=== PATIENT | female | born 1955 | race Caucasian/White ===

== ENCOUNTER 2020-01-06 18:24 | Inpatient (IN) | payer MEDICAID ==
[2020-01-06 20:47] VITALS: BP 116/72
[2020-01-06] MEDS ORDERED: Maalox 30 mL Cup PO PRN (22:06)
[2020-01-06] MEDS ORDERED: Magnesium Hydroxide (MOM) 30 mL UDC PO PRN (22:06)
[2020-01-07] MEDS ORDERED: Polyvinyl Alcohol Ophth Soln 15 mL Bottle EACH EYE PRN (01:21)
[2020-01-07] MEDS: INSULIN LISPRO SLIDING SCALE 100 UNITS/ML UNIT SUBQ SCH ×4 (06:36→22:14)
[2020-01-07] MEDS ORDERED: Non-Formulary Item 1 EA (Multivitamin [Multivitamins] 1 CAP) PO SCH (09:00)
[2020-01-07] MEDS: Aspirin 81mg Chewable Tab PO SCH (09:37)
[2020-01-07] MEDS: Multivitamin Tab PO SCH (09:37)
--- NOTE | 2020-01-07 13:44 | History & Physical ---
ADMIT DATE: 01/06/2020 HISTORY OF PRESENT ILLNESS: We have a 64-year-old female with diabetes, hypertension, who was admitted for agitation and schizophrenia per psychiatrist. No nausea, vomiting, abdominal pain, diarrhea, or rectal bleeding. PAST MEDICAL HISTORY: Diabetes, hypertension. PAST SURGICAL HISTORY: None. MEDICATIONS: List reviewed. ALLERGIES: None. SOCIAL HISTORY: Tobacco, IV drugs, ETOH negative. PHYSICAL EXAMINATION: VITAL SIGNS: Temperature 97.9, pulse 87, respirations 20, blood pressure 136/78, satting 95% on room air. HEENT: Normocephalic, atraumatic head exam. NECK: Supple. CARDIOVASCULAR: Regular rate and rhythm. LUNGS: Decreased breath sounds. ABDOMEN: Soft, nontender. EXTREMITIES: No edema, cyanosis or clubbing. CN exam--grossly intact ASSESSMENT AND PLAN: 1. Diabetes. 2. Hypertension. 3. Hyperlipidemia. 4. Schizophrenia. The patient will be started on sliding scale insulin. We will check CBC, CMP, COVID screening will be done due to recent COVID exposure. JOB# [id number] [facility]
[2020-01-07] MEDS: POLYETHYLENE GLYCOL 3350 17 GM PACK PO SCH (18:19)
[2020-01-07] MEDS ORDERED: LURASIDONE HCL 20 MG PO SCH (21:00)
--- NOTE | 2020-01-07 21:32 | Psychiatric Evaluation ---
DATE OF SERVICE: 01/07/2020 Initial Psychiatric Evaluation The patient was seen and evaluated. The patient's chart was reviewed. CHIEF COMPLAINT: "I'm hearing voices." HISTORY OF PRESENT ILLNESS: A 64-year-old female with a previous history of schizophrenia, who reports that recently her medications were not filled by the prescription for the past 3 days, then began hearing voices to hurt herself. She finds herself very distraught by voices, she could not fill the prescription. PAST MEDICAL HISTORY: History of pneumonia. COVID negative most recent ____, history of hypertension, hyperlipidemia, diarrhea and DVT. PAST PSYCHIATRIC HISTORY: Schizophrenia. ALLERGIES TO MEDICATIONS: NKDA. HOME MEDICATION: Reconciliation reviewed. The patient reports that she recently became noncompliant on the Latuda because of the noncoverage of the insurance. SIGNIFICANT FAMILY PSYCHIATRIC HISTORY: Denies. SOCIAL HISTORY: prison. Denies any alcohol, illicit drug use. STRENGTH: Motivated. WEAKNESSES: Poor coping skills. LEGAL HISTORY: None. MENTAL STATUS EXAMINATION: Calm, cooperative, anxious, tearful, sad, depressed, suicidal, command type auditory hallucinations. ASSESSMENT AND PLAN: Schizophrenia. We will start the patient on Abilify to target the patient's voices. PRIMARY DIAGNOSIS: Schizophrenia. SECONDARY DIAGNOSIS: None. MEDICAL DIAGNOSIS: Per medical team, which includes diabetes, hypertension, hyperlipidemia. PLAN: 1. Admit. 2. Resume medications. 3. Obtain more collateral baseline information. 4. Continue with OT and individual and group therapy. [facility]# [id number]
[2020-01-07] MEDS: Insulin Glargine 100 units/ml 10ml Vial SUBQ SCH (21:45)
[2020-01-08] MEDS: INSULIN LISPRO SLIDING SCALE 100 UNITS/ML UNIT SUBQ SCH ×3 (06:54→20:42)
--- NOTE | 2020-01-08 07:35 | Progress Notes ---
DATE: SUBJECTIVE: The patient was seen and evaluated. The patient's chart reviewed. The patient was able to tolerate the Abilify yesterday. She reports that the voices are still there. No complication. No side effects. MENTAL STATUS EXAMINATION: Auditory hallucination. ASSESSMENT AND PLAN: Schizophrenia. Per the returning physician, the patient ____ from the insurance company not covering Latuda. She was started on Abilify ____. JOB# [id number]
[2020-01-08] MEDS: Aspirin 81mg Chewable Tab PO SCH (08:54)
[2020-01-08] MEDS: Multivitamin Tab PO SCH (08:55)
[2020-01-08] MEDS: POLYETHYLENE GLYCOL 3350 17 GM PACK PO SCH (08:57)
[2020-01-08] MEDS ORDERED: INSULIN LISPRO SLIDING SCALE 100 UNITS/ML UNIT SUBQ SCH ×2 (17:09→17:11)
[2020-01-08] MEDS: Insulin Glargine 100 units/ml 10ml Vial SUBQ SCH (20:45)
[2020-01-09] MEDS: INSULIN LISPRO SLIDING SCALE 100 UNITS/ML UNIT SUBQ SCH ×3 (06:38→16:29)
[2020-01-09] MEDS: POLYETHYLENE GLYCOL 3350 17 GM PACK PO SCH (08:18)
[2020-01-09] MEDS: Multivitamin Tab PO SCH (08:18)
[2020-01-09] MEDS: Aspirin 81mg Chewable Tab PO SCH (08:18)
[2020-01-09 13:42] LABS: HEMATOCRIT 36.9 % (36-48); HEMOGLOBIN 12.1 g/dL (12.0-16.0); MEAN CORPUSCULAR HEMOGLOBIN 29 pg (27-31); MEAN CORPUSCULAR HGB CONC 33 % (32-36); MEAN CORPUSCULAR VOLUME 87 fL (79.0-98.0); PLATELET COUNT 150 K/uL (130-430); RED BLOOD COUNT 4.24 MIL/uL (4.2-6.2); RED CELL DISTRIBUTION WIDTH 15.7 % (9.0-15.0); WHITE BLOOD COUNT 6.1 K/uL (4.8-10.8)
[2020-01-09 13:43] LABS: % NEUTROPHILS 62.6 % (40-70); BASOPHILS % (AUTO) 0.4 % (0.0-2.0); EOSINOPHILS # (AUTO) 0.2 K/uL (0.0-0.4); EOSINOPHILS % (AUTO) 3.1 % (0-4); LYMPHOCYTES # (AUTO) 1.7 K/uL (1.0-5.5); LYMPHOCYTES % (AUTO) 28.6 % (20.5-51.5); MONOCYTES # (AUTO) 0.3 K/uL (0.0-1.0); MONOCYTES % (AUTO) 5.3 % (1.7-9.3); NEUTROPHILS # (AUTO) 3.8 K/uL (1.8-7.7)
[2020-01-09 13:47] LABS: POTASSIUM SERUM 4.6 mmol/L (3.5-5.1)
[2020-01-09 13:49] LABS: CREATININE - SERUM 1.27 mg/dL (0.70-1.30)
[2020-01-09 13:50] LABS: BILIRUBIN,TOTAL 0.3 mg/dL (0.0-1.0); CALCIUM SERUM 9.6 mg/dL (8.4-10.2); TOTAL PROTEIN,SERUM 7.8 g/dL (6.4-8.3)
[2020-01-09 13:52] LABS: CHOLESTEROL 159 mg/dL (<200)
[2020-01-09 13:53] LABS: LDL CHOLESTEROL 88 mg/dL (0-129); TRIGLYCERIDES 298 mg/dL (30-150)
--- NOTE | 2020-01-09 15:51 | Progress Notes ---
DATE: 01/09/[address] Hood. This is a 64-year-old female who was admitted on 01/06/2020 because of hearing voices, history of schizophrenia, has not filled his medication recently, began hearing voices to harm herself. The patient was started on Abilify. Continues to report hearing voices. No side effects with the medication, no sedation, no nausea, no extrapyramidal symptoms. She is willing to contract for safety. I will be increasing the Abilify to 10 mg daily. No side effects with the medication, no sedation, no nausea, no extrapyramidal symptoms. We will continue outpatient group therapy, milieu therapy, adjust medication as needed. JOB# [id number] [facility]TD[facility]
[2020-01-10 00:17] LABS: A1C 11.5 % (4.8-5.6)
--- NOTE | 2020-01-13 22:24 | Discharge Summary ---
DATE OF DISCHARGE: 01/09/2020 AGE: 64. SEX: Female. PHYSICIAN: Dr. Hood. PRIMARY DIAGNOSIS: Schizophrenia. MEDICAL DIAGNOSIS: COVID-19 test positive. REASON FOR HOSPITALIZATION: The patient was admitted to the hospital because of auditory hallucinations and the patient was not taking her medications for at least 3 days prior to her admission and she was very disturbed with the hallucinations and she was actively psychotic and responding. HOSPITAL COURSE: The patient continued to be anxious and in irritable mood. The patient also was disturbed because of the hallucinations and was actively responding to stimuli. The patient was started on Latuda at a dose of 20 mg every day. Also, was given Abilify 10 mg every day. The patient was still responding to stimuli and was irritable and reports auditory hallucinations. The patient's COVID test came back positive and the patient was transferred to [facility]. Physical exam of the patient was basically within normal except that the patient has history of hypertension and hyperlipidemia as well as deep vein thrombosis. When the patient got positive COVID-19 test, the patient was transferred to [facility]. AFTER DISCHARGE PLANS: The patient transferred to [facility] with plans to be followed there. EXPECTED OUTCOME AFTER DISCHARGE: Fair if the patient continues to take her psychotropic medications and follow up with discharge plans. [facility]# [id number]
== END 2020-01-09 17:00 | disposition short-term general hospital (02) | DRG 885 ==
LOC: GERO 19:11
PROVIDERS: ADMIT Psychiatry & Neurology Psychiatry; ATTEND Psychiatry & Neurology Psychiatry
DX: F20.9 Schizophrenia, unspecified (principal); U07.1 COVID-19; E11.65 Type 2 diabetes mellitus with hyperglycemia; I10 Essential (primary) hypertension; E11.9 Type 2 diabetes mellitus without complications; E78.5 Hyperlipidemia, unspecified; Z87.01 Personal history of pneumonia (recurrent); Z86.718 Personal history of other venous thrombosis and embolism
CPT/HCPCS: 36415-UA; 80053-TC; 80061-TC; 82948-90; 83036-90; 84443-TC; 85025-TC; J1815; U0003-CS; Z7610

== ENCOUNTER 2020-01-31 17:49 | Inpatient (IN) | payer MEDICAID ==
[2020-02-01 02:22] VITALS: BP 130/76
[2020-02-01] MEDS ORDERED: Magnesium Hydroxide (MOM) 30 mL UDC PO PRN ×2 (02:22→07:46)
[2020-02-01] MEDS ORDERED: Maalox 30 mL Cup PO PRN ×2 (02:22→07:46)
[2020-02-01] MEDS ORDERED: Multivitamin Tab PO SCH (09:00)
[2020-02-01] MEDS ORDERED: GLUCAGON HCl 1 MG KIT IM PRN (09:18)
[2020-02-01] MEDS: INSULIN LISPRO SLIDING SCALE 100 UNITS/ML UNIT SUBQ ONE ×2 (09:30→09:36)
[2020-02-01] MEDS: INSULIN LISPRO SLIDING SCALE 100 UNITS/ML UNIT SUBQ SCH ×4 (09:37→20:56)
[2020-02-01] MEDS: POLYETHYLENE GLYCOL 3350 17 GM PACK PO SCH (09:54)
[2020-02-01] MEDS: Multivitamin Tab PO SCH (09:56)
[2020-02-01] MEDS: Aspirin 81mg Chewable Tab PO SCH (09:56)
[2020-02-01] MEDS ORDERED: Polyvinyl Alcohol Ophth Soln 15 mL Bottle EACH EYE PRN (10:00)
--- NOTE | 2020-02-01 13:19 | History & Physical ---
ADMIT DATE: 02/01/2020 CHIEF COMPLAINT: Agitation. HISTORY OF PRESENT ILLNESS: We have a 65-year-old female with diabetes and hypertension, who was transferred for agitation. The patient denies any nausea, vomiting, abdominal pain, diarrhea, or rectal bleeding. PAST MEDICAL HISTORY: Diabetes and hypertension. PAST SURGICAL HISTORY: None. MEDICATIONS: List reviewed. ALLERGIES: None. SOCIAL HISTORY: Tobacco, IV drugs, ETOH negative. PHYSICAL EXAMINATION: VITAL SIGNS: Temperature 97.3, pulse 90, respirations 20, blood pressure 138/78. HEENT: Normocephalic, atraumatic head exam. NECK: Supple. CARDIOVASCULAR: Regular rate and rhythm. LUNGS: Decreased breath sounds. ABDOMEN: Soft, nontender. EXTREMITIES: No edema, cyanosis or clubbing. CN 2-12 grossly intact ASSESSMENT AND PLAN: Diabetes and hypertension. The patient will continue with supportive care. The patient will get a CBC, CMP, hemoglobin A1c. We will go from there. JOB# [id number] [facility]
--- NOTE | 2020-02-01 14:58 | Psychiatric Evaluation ---
DATE OF SERVICE: 02/01/2020 IDENTIFYING INFORMATION: The patient is a 65-year-old female. CHIEF COMPLAINT: "I talked to her through a environmental advisor. The patient reports she is hearing voices." HISTORY OF PRESENT ILLNESS: The patient was sent from [facility] because of psychosis, increasing auditory hallucination, visual hallucination. She was hearing voices to harm herself. The patient has been anxious, depressed. I talked to her through a environmental advisor. She was able to tell me her age. She knew where she was. She was not able to tell me the date if it a first or second of January. She knew it was 2019. She was not sure why she is here, but she knows she is here because of hearing voices telling her to harm herself, but she wants to cooperate. She has not been sleeping well. Appetite is okay. She denies any homicidal ideation. PAST PSYCHIATRIC HISTORY: The patient was recently hospitalized at this facility and seen by Dr. Hood, was discharged actually recently 3 weeks ago. The patient was on Abilify. PAST PSYCHIATRIC HISTORY: The patient has prior admissions to this facility and other facility with a history of schizophrenia. The patient denies prior suicide attempts. ALLERGIES: The patient has no known drug allergy. Deferred to the medical doctor. FAMILY AND SOCIAL HISTORY: The patient reports that she has been single, but she has 7 children. The patient lives at [facility]. The patient reports that she used to drink beer, but not recently. She reported that she has 5th grade education, used to work in factories. No family psychotic disorder. No history of abuse. MENTAL STATUS EXAMINATION: The patient is appropriately dressed, not well groomed. Her mood is depressed. Affect is flat. Thoughts are concrete. Speech is coherent. She admits to hearing voices and seeing things. The voices tell her to harm herself, but she is willing to contract for safety, has not been sleeping well. She is eating well. She denies any intent to harm anyone. She seems to have average intelligence just by able to give information, fund of knowledge and knowledge of the vice president marketing & development. Concentration is fair, able to answer questions appropriately, was unable to spell her name forward and backward. Long-term is poor. She cannot remember age, date of . Recent memory is poor . She can not remember events that lead to her admission and what she ate for breakfast. Immediate memory is poor, cannot concentrate enough and repeat things after me. Her insight about her illness is fair. Judgment is poor with her wanting to harm herself. IMPRESSION: Chronic undifferentiated schizophrenia. MEDICAL DIAGNOSES: Hypertension, diabetes mellitus, hyperlipidemia. PLAN: The patient will be restarted back on the Abilify 30 mg a day. We will do group therapy, milieu therapy, and individual therapy. ESTIMATED LENGTH OF STAY: 3-7 days. DISCHARGE CRITERIA: Decreasing psychosis, no longer suicidal after discharge, outpatient treatment. JOB# [id number] [facility]
[2020-02-01] MEDS: Insulin Glargine 100 units/ml 10ml Vial SUBQ SCH (20:55)
[2020-02-01] MEDS ORDERED: LURASIDONE HCL 20 MG PO SCH (21:00)
[2020-02-02] MEDS: INSULIN LISPRO SLIDING SCALE 100 UNITS/ML UNIT SUBQ SCH ×4 (06:44→20:56)
[2020-02-02] MEDS: POLYETHYLENE GLYCOL 3350 17 GM PACK PO SCH (08:25)
[2020-02-02] MEDS: Multivitamin Tab PO SCH (08:25)
[2020-02-02] MEDS: Aspirin 81mg Chewable Tab PO SCH (08:25)
[2020-02-02] MEDS: Acetaminophen 500 MG TAB PO PRN (08:41)
--- NOTE | 2020-02-02 11:26 | Progress Notes ---
DATE: 02/02/2020 Case was discussed with staff of the patient, reviewed records. The patient continues to look disheveled, disorganized, internally preoccupied, responding to internal stimuli. Continues to be unpredictable, impulsive. She has been restarted on her medication with no side effects, no sedation, no nausea, no extrapyramidal symptoms. She is on Abilify 30 mg a day. We will continue outpatient group therapy, milieu therapy, adjust medication as needed. JOB# [id number]
[2020-02-02 14:16] LABS: HEMATOCRIT 37.5 % (36-48); HEMOGLOBIN 12.1 g/dL (12.0-16.0); MEAN CORPUSCULAR VOLUME 89 fL (79.0-98.0); WHITE BLOOD COUNT 6.2 K/uL (4.8-10.8)
[2020-02-02 14:17] LABS: % NEUTROPHILS 61.6 % (40-70); BASOPHILS % (AUTO) 0.5 % (0.0-2.0); EOSINOPHILS % (AUTO) 1.5 % (0-4); LYMPHOCYTES % (AUTO) 31.6 % (20.5-51.5); MEAN CORPUSCULAR HEMOGLOBIN 29 pg (27-31); MEAN CORPUSCULAR HGB CONC 32 % (32-36); MONOCYTES % (AUTO) 4.8 % (1.7-9.3); PLATELET COUNT 172 K/uL (130-430); RED CELL DISTRIBUTION WIDTH 15.4 % (9.0-15.0)
[2020-02-02 14:18] LABS: EOSINOPHILS # (AUTO) 0.1 K/uL (0.0-0.4); MONOCYTES # (AUTO) 0.3 K/uL (0.0-1.0); NEUTROPHILS # (AUTO) 3.8 K/uL (1.8-7.7)
[2020-02-02 14:38] LABS: POTASSIUM SERUM 4.3 mmol/L (3.5-5.1)
[2020-02-02 14:39] LABS: BILIRUBIN,TOTAL 0.3 mg/dL (0.0-1.0); CALCIUM SERUM 9.2 mg/dL (8.4-10.2); CREATININE - SERUM 1.25 mg/dL (0.70-1.30); TOTAL PROTEIN,SERUM 7.5 g/dL (6.4-8.3)
[2020-02-02 14:40] LABS: CHOLESTEROL 159 mg/dL (<200); LDL CHOLESTEROL 88 mg/dL (0-129); TRIGLYCERIDES 203 mg/dL (30-150)
[2020-02-02] MEDS: Insulin Glargine 100 units/ml 10ml Vial SUBQ SCH (20:56)
[2020-02-03] MEDS: INSULIN LISPRO SLIDING SCALE 100 UNITS/ML UNIT SUBQ SCH ×4 (06:31→21:19)
[2020-02-03 08:09] LABS: A1C 11.3 % (4.8-5.6)
[2020-02-03] MEDS: POLYETHYLENE GLYCOL 3350 17 GM PACK PO SCH (08:20)
[2020-02-03] MEDS: Multivitamin Tab PO SCH (08:21)
[2020-02-03] MEDS: Aspirin 81mg Chewable Tab PO SCH (08:21)
[2020-02-03] MEDS: Acetaminophen 500 MG TAB PO PRN ×2 (09:07→16:20)
--- NOTE | 2020-02-03 16:38 | Progress Notes ---
DATE: 02/03/2020 Case was discussed with staff of the patient, reviewed records. The patient talked to us through a manifest clerk. The patient is able to express herself. She reported that the voices are fading away. They are no longer telling her to harm herself. She is sleeping well, eating well. No side effects with the medication, no sedation, no nausea, no extrapyramidal symptoms. The patient was on latuda, however, it is not available here, so we will keep her on the Abilify. She is starting to show some progress. We will continue outpatient group therapy, milieu therapy, and adjust medications as needed. JOB# [id number] [facility]TD[facility]
[2020-02-03] MEDS: Insulin Glargine 100 units/ml 10ml Vial SUBQ SCH (21:20)
[2020-02-04] MEDS: INSULIN LISPRO SLIDING SCALE 100 UNITS/ML UNIT SUBQ SCH ×4 (06:35→21:45)
[2020-02-04] MEDS: Multivitamin Tab PO SCH (08:57)
[2020-02-04] MEDS: Aspirin 81mg Chewable Tab PO SCH (08:57)
[2020-02-04] MEDS: POLYETHYLENE GLYCOL 3350 17 GM PACK PO SCH (08:57)
--- NOTE | 2020-02-04 14:29 | Progress Notes ---
DATE: 02/04/2020 Covering for Arlette Hood M.D. SUBJECTIVE: The patient was interviewed. Case was discussed with staff. Chart and records were reviewed. Per the staff, the patient continues to endorse auditory hallucinations, but reports that depression is improving. Her suicidal thoughts are decreasing. The patient was visited at bedside. The patient reports that she is feeling a little bit better, but does endorse auditory hallucinations. She appears to be withdrawn. She appears to be distracted. She appears to be in no acute distress, but does appear to be overall unhappy with her current condition. No side effects have been noted. MENTAL STATUS EXAMINATION: The patient is lying comfortably in the hospital bed, poor eye contact. Speech is soft and mumbled. Mood and affect appear to be constricted. Thought process appears to be somewhat concrete. The patient is reporting reduction in suicidal thoughts. Denies any homicidal thoughts. The patient does report ongoing auditory hallucinations, which are causing her some distress. Denying any visual hallucinations, also appears to be somewhat paranoid. She is alert and oriented to person and place. Insight, judgment and impulse control appear to be limited. ASSESSMENT AND PLAN: Upon review of the patient's case, the patient was previously on Latuda; however, she was diagnosed with COVID-19 and after that diagnosis, the patient's symptoms decompensated. She was hospitalized at [facility] where they transitioned her off Latuda on to Abilify and titrated up to 25 mg and then in the nursing facility, this provider increased the patient's medication at 30 mg. No side effects noted; however, the patient's auditory hallucinations continue. Therefore, we will consider augmenting the patient's medications of Abilify with risperidone to provide further benefit for her hallucinations. JOB# [id number] [facility]
[2020-02-04] MEDS: Insulin Glargine 100 units/ml 10ml Vial SUBQ SCH (21:44)
[2020-02-05] MEDS: INSULIN LISPRO SLIDING SCALE 100 UNITS/ML UNIT SUBQ SCH ×4 (06:36→20:29)
[2020-02-05] MEDS: POLYETHYLENE GLYCOL 3350 17 GM PACK PO SCH (08:22)
[2020-02-05] MEDS: Aspirin 81mg Chewable Tab PO SCH (08:22)
[2020-02-05] MEDS: Multivitamin Tab PO SCH (08:23)
[2020-02-05] MEDS: Acetaminophen 500 MG TAB PO PRN (10:28)
[2020-02-05] MEDS: Insulin Glargine 100 units/ml 10ml Vial SUBQ SCH (20:28)
[2020-02-06] MEDS: INSULIN LISPRO SLIDING SCALE 100 UNITS/ML UNIT SUBQ SCH ×4 (06:30→21:48)
[2020-02-06] MEDS: POLYETHYLENE GLYCOL 3350 17 GM PACK PO SCH (08:25)
[2020-02-06] MEDS: Multivitamin Tab PO SCH (08:46)
[2020-02-06] MEDS: Aspirin 81mg Chewable Tab PO SCH (08:47)
[2020-02-06] MEDS: Insulin Glargine 100 units/ml 10ml Vial SUBQ SCH (21:43)
--- NOTE | 2020-02-07 05:34 | Psych Progress Note ---
Psych Progress Note - Intro Date of Progress Note: 02/05/20 - Assessment Assessment: patient is depressed withdrawn mostly in her room all day. she complains of voices. less confused. no side effects. - Vitals, I&O Vitals: Vital Signs - 24 hr 02/06/20 02/06/20 02/06/20 05:36 08:00 08:46 Temp 98.6 F HR 79 79 RR 20 20 BP 120/71 120/71 O2 Sat % 97 02/06/20 02/06/20 02/06/20 14:52 15:14 19:41 Temp 99.0 F HR 78 78 RR 20 18 BP 128/75 128/75 O2 Sat % 96 02/06/20 02/06/20 20:25 21:25 Temp 98.9 F HR 76 76 RR 20 BP 116/60 116/75 O2 Sat % 96 - Objective Psych General Appearance: Report: Little eye-contact Psych Behavior: Report: Shy Psych Speech: Report: Coherent, Soft Psych Mood: Report: Depressed Psych Affect: Report: Sad Psych Thought Process: Report: Auditory Psych Insight: Report: Impaired Psych Judgement: Report: Impaired - Plan Plan: patient previously on Latuda but after being tested COVID positive in care home had exacerbation of symptoms (voices and depression with suicidal thoughts) . she was switched to Abilify with improvement but still continues with depression with voices which are causing her to be sad and withdrawn. we will add Risperdal and if effective can cross titrate. - Review of Relevant Data Review of Relevant Data: I have reviewed the following items and time danny (where applicable) has been applied. - Medications Current Medications: Current Medications Acetaminophen (Tylenol Extra Strength) 1,000 mg PO Q6H PRN PRN Reason: Pain (Moderate 4-6) Stop: 04/01/20 02:21 Last Admin: 02/05/20 10:28 Dose: 1,000 mg Acetaminophen (Tylenol) 650 mg PO Q4H PRN PRN Reason: Pain (Mild 1-3) Stop: 04/01/20 07:45 Last Admin: 02/04/20 06:26 Dose: 650 mg Al Hydrox/Mg Hydrox/Simethicone (Maalox) 30 ml PO Q4HR PRN PRN Reason: GI DISTRESS Stop: 04/01/20 07:45 Aripiprazole (Abilify) 30 mg PO DAILY [facility]; Protocol Stop: 04/01/20 08:59 Last Admin: 02/06/20 08:46 Dose: 30 mg Artificial Tears (Artificial Tears Ophth Soln) 1 drop EACH EYE Q6HR PRN PRN Reason: dry eyes Stop: 04/01/20 09:59 Ascorbic Acid (Vitamin C) 500 mg PO DAILY [facility] Stop: 04/01/20 08:59 Last Admin: 02/06/20 08:46 Dose: 500 mg Aspirin (Aspirin Chewable) 81 mg PO DAILY [facility] Stop: 04/01/20 08:59 Last Admin: 02/06/20 08:47 Dose: 81 mg Brimonidine Tartrate (Alphagan 0.15% Ophth Soln) 1 drop EACH EYE Q8HR [facility] Stop: 04/01/20 12:59 Last Admin: 02/06/20 21:25 Dose: 1 drop Cyanocobalamin (Vitamin B12) 1,000 mcg PO DAILY [facility] Stop: 04/01/20 08:59 Last Admin: 02/06/20 08:47 Dose: 1,000 mcg Dextrose (Glutose 40%) 18.75 gm PO PRN PRN PRN Reason: BS Below 70 if tolerate po Stop: 04/01/20 09:17 Gabapentin (Neurontin) 800 mg PO Q8HR [facility] Stop: 04/01/20 12:59 Last Admin: 02/06/20 21:25 Dose: 800 mg Glucagon (Glucagen) 1 mg IM PRN PRN PRN Reason: BS Below 70 if not tolerate po Stop: 04/01/20 09:17 Ibuprofen (Motrin) 400 mg PO Q4H PRN PRN Reason: Pain (Severe 7-10) Stop: 04/01/20 02:21 Insulin Glargine (Lantus Insulin) 33 units SUBQ HS [facility] Stop: 04/01/20 20:59 Last Admin: 02/06/20 21:43 Dose: 33 units Insulin Human Lispro (Humalog Insulin Sliding Scale) 0 units SUBQ ACHS [facility]; Protocol Stop: 04/01/20 09:29 Last Admin: 02/06/20 21:48 Dose: 7 units Loratadine (Claritin) 10 mg PO DAILY [facility] Stop: 04/01/20 08:59 Last Admin: 02/06/20 08:47 Dose: 10 mg Lorazepam (Ativan) 0.5 mg PO Q4HR PRN; Protocol PRN Reason: Anxiety Stop: 04/01/20 07:00 Last Admin: 02/04/20 13:17 Dose: 0.5 mg Magnesium Hydroxide (Milk Of Magnesia) 30 ml PO HS PRN PRN Reason: Constipation Stop: 04/01/20 07:45 Multivitamins/Vitamin C (Theragran) 1 tab PO DAILY [facility]KE Stop: 04/01/20 08:59 Last Admin: 02/06/20 08:46 Dose: 1 tab Polyethylene Glycol (Miralax) 17 gm PO DAILY [facility] Stop: 04/01/20 08:59 Last Admin: 02/06/20 08:25 Dose: 17 gm Propranolol HCl (Inderal) 10 mg PO TID MIKE Stop: 04/01/20 08:59 Last Admin: 02/06/20 21:25 Dose: 10 mg Risperidone (Risperdal) 0.25 mg PO BID [facility]KE; Protocol Stop: 04/05/20 16:59 Last Admin: 02/06/20 08:30 Dose: 0.25 mg Senna (Senna) 8.6 mg PO HS MIKE Stop: 04/01/20 20:59 Last Admin: 02/06/20 21:28 Dose: 8.6 mg Simvastatin (Zocor) 10 mg PO HS MIKE; Protocol Stop: 04/01/20 20:59 Last Admin: 02/06/20 21:28 Dose: 10 mg Zolpidem Tartrate (Ambien) 5 mg PO HS PRN PRN Reason: Insomnia Stop: 04/01/20 02:30 Last Admin: 02/06/20 21:28 Dose: 5 mg
--- NOTE | 2020-02-07 05:35 | Psych Progress Note ---
Psych Progress Note - Intro Date of Progress Note: 02/06/20 - Assessment Assessment: patient is depressed withdrawn mostly in her room all day. she complains of voices. less confused. no side effects. - Vitals, I&O Vitals: Vital Signs - 24 hr 02/06/20 02/06/20 02/06/20 05:36 08:00 08:46 Temp 98.6 F HR 79 79 RR 20 20 BP 120/71 120/71 O2 Sat % 97 02/06/20 02/06/20 02/06/20 14:52 15:14 19:41 Temp 99.0 F HR 78 78 RR 20 18 BP 128/75 128/75 O2 Sat % 96 02/06/20 02/06/20 20:25 21:25 Temp 98.9 F HR 76 76 RR 20 BP 116/60 116/75 O2 Sat % 96 - Objective Psych General Appearance: Report: Little eye-contact Psych Behavior: Report: Shy Psych Speech: Report: Coherent, Soft Psych Mood: Report: Depressed Psych Affect: Report: Sad Psych Thought Process: Report: Auditory Psych Insight: Report: Impaired Psych Judgement: Report: Impaired - Plan Plan: patient previously on Latuda but after being tested COVID positive in sn[facility] had exacerbation of symptoms (voices and depression with suicidal thoughts) . she was switched to Abilify with improvement but still continues with depression with voices which are causing her to be sad and withdrawn. we will add Risperdal and if effective can cross titrate. - Review of Relevant Data Review of Relevant Data: I have reviewed the following items and time danny (where applicable) has been applied. - Medications Current Medications: Current Medications Acetaminophen (Tylenol Extra Strength) 1,000 mg PO Q6H PRN PRN Reason: Pain (Moderate 4-6) Stop: 04/01/20 02:21 Last Admin: 02/05/20 10:28 Dose: 1,000 mg Acetaminophen (Tylenol) 650 mg PO Q4H PRN PRN Reason: Pain (Mild 1-3) Stop: 04/01/20 07:45 Last Admin: 02/04/20 06:26 Dose: 650 mg Al Hydrox/Mg Hydrox/Simethicone (Maalox) 30 ml PO Q4HR PRN PRN Reason: GI DISTRESS Stop: 04/01/20 07:45 Aripiprazole (Abilify) 30 mg PO DAILY [facility]; Protocol Stop: 04/01/20 08:59 Last Admin: 02/06/20 08:46 Dose: 30 mg Artificial Tears (Artificial Tears Ophth Soln) 1 drop EACH EYE Q6HR PRN PRN Reason: dry eyes Stop: 04/01/20 09:59 Ascorbic Acid (Vitamin C) 500 mg PO DAILY [facility] Stop: 04/01/20 08:59 Last Admin: 02/06/20 08:46 Dose: 500 mg Aspirin (Aspirin Chewable) 81 mg PO DAILY [facility] Stop: 04/01/20 08:59 Last Admin: 02/06/20 08:47 Dose: 81 mg Brimonidine Tartrate (Alphagan 0.15% Ophth Soln) 1 drop EACH EYE Q8HR [facility] Stop: 04/01/20 12:59 Last Admin: 02/06/20 21:25 Dose: 1 drop Cyanocobalamin (Vitamin B12) 1,000 mcg PO DAILY [facility] Stop: 04/01/20 08:59 Last Admin: 02/06/20 08:47 Dose: 1,000 mcg Dextrose (Glutose 40%) 18.75 gm PO PRN PRN PRN Reason: BS Below 70 if tolerate po Stop: 04/01/20 09:17 Gabapentin (Neurontin) 800 mg PO Q8HR [facility] Stop: 04/01/20 12:59 Last Admin: 02/06/20 21:25 Dose: 800 mg Glucagon (Glucagen) 1 mg IM PRN PRN PRN Reason: BS Below 70 if not tolerate po Stop: 04/01/20 09:17 Ibuprofen (Motrin) 400 mg PO Q4H PRN PRN Reason: Pain (Severe 7-10) Stop: 04/01/20 02:21 Insulin Glargine (Lantus Insulin) 33 units SUBQ HS [facility] Stop: 04/01/20 20:59 Last Admin: 02/06/20 21:43 Dose: 33 units Insulin Human Lispro (Humalog Insulin Sliding Scale) 0 units SUBQ ACHS [facility]; Protocol Stop: 04/01/20 09:29 Last Admin: 02/06/20 21:48 Dose: 7 units Loratadine (Claritin) 10 mg PO DAILY [facility] Stop: 04/01/20 08:59 Last Admin: 02/06/20 08:47 Dose: 10 mg Lorazepam (Ativan) 0.5 mg PO Q4HR PRN; Protocol PRN Reason: Anxiety Stop: 04/01/20 07:00 Last Admin: 02/04/20 13:17 Dose: 0.5 mg Magnesium Hydroxide (Milk Of Magnesia) 30 ml PO HS PRN PRN Reason: Constipation Stop: 04/01/20 07:45 Multivitamins/Vitamin C (Theragran) 1 tab PO DAILY [facility] Stop: 04/01/20 08:59 Last Admin: 02/06/20 08:46 Dose: 1 tab Polyethylene Glycol (Miralax) 17 gm PO DAILY [facility] Stop: 04/01/20 08:59 Last Admin: 02/06/20 08:25 Dose: 17 gm Propranolol HCl (Inderal) 10 mg PO TID [facility] Stop: 04/01/20 08:59 Last Admin: 02/06/20 21:25 Dose: 10 mg Risperidone (Risperdal) 0.25 mg PO BID [facility]; Protocol Stop: 04/05/20 16:59 Last Admin: 02/06/20 08:30 Dose: 0.25 mg Senna (Senna) 8.6 mg PO HS [facility] Stop: 04/01/20 20:59 Last Admin: 02/06/20 21:28 Dose: 8.6 mg Simvastatin (Zocor) 10 mg PO HS [facility]; Protocol Stop: 04/01/20 20:59 Last Admin: 02/06/20 21:28 Dose: 10 mg Zolpidem Tartrate (Ambien) 5 mg PO HS PRN PRN Reason: Insomnia Stop: 04/01/20 02:30 Last Admin: 02/06/20 21:28 Dose: 5 mg
[2020-02-07] MEDS: INSULIN LISPRO SLIDING SCALE 100 UNITS/ML UNIT SUBQ SCH ×4 (06:45→21:05)
[2020-02-07] MEDS: POLYETHYLENE GLYCOL 3350 17 GM PACK PO SCH (08:55)
[2020-02-07] MEDS: Aspirin 81mg Chewable Tab PO SCH (08:56)
[2020-02-07] MEDS: Multivitamin Tab PO SCH (08:56)
[2020-02-07] MEDS: Acetaminophen 500 MG TAB PO PRN (10:28)
[2020-02-07] MEDS: Insulin Glargine 100 units/ml 10ml Vial SUBQ SCH (21:04)
--- NOTE | 2020-02-07 21:15 | Progress Notes ---
DATE: 02/07/2020 Case was discussed with staff of the patient, reviewed records. The patient is [place] speaking, spoke through a bun machine operator. The voices are still there, but not as prominent. She stays in her room all day, poor interaction with others. Continues to be confused, psychotic, but in general, she is doing better. No acting out behavior. No side effects with the medication, no sedation, no nausea, no extrapyramidal symptoms. We will continue outpatient group therapy, milieu therapy, adjust medication as needed. JOB# [id number]
[2020-02-08] MEDS: INSULIN LISPRO SLIDING SCALE 100 UNITS/ML UNIT SUBQ SCH ×4 (06:32→20:44)
[2020-02-08] MEDS: Multivitamin Tab PO SCH (09:37)
[2020-02-08] MEDS: POLYETHYLENE GLYCOL 3350 17 GM PACK PO SCH (09:37)
[2020-02-08] MEDS: Aspirin 81mg Chewable Tab PO SCH (09:38)
[2020-02-08] MEDS: Insulin Glargine 100 units/ml 10ml Vial SUBQ SCH (20:45)
--- NOTE | 2020-02-08 20:53 | Progress Notes ---
DATE: 02/08/2020 Case was discussed with staff of the patient and reviewed records. The patient continues to be internally preoccupied, stays to herself. She continues to appear to be responding to internal stimuli; however, she is denying that the voices are telling her to harm herself. She is reporting that she is starting to feel better; however, still staying to herself. I will be increasing Risperdal to 0.5 mg twice a day. No side effects to the medication, no sedation, no nausea, and no extrapyramidal symptoms. We will continue to work with the patient in group therapy, milieu therapy, and adjust the medication as needed. JOB# [id number]
[2020-02-09] MEDS: INSULIN LISPRO SLIDING SCALE 100 UNITS/ML UNIT SUBQ SCH ×4 (06:30→20:12)
[2020-02-09] MEDS: Multivitamin Tab PO SCH (08:57)
[2020-02-09] MEDS: Aspirin 81mg Chewable Tab PO SCH (08:57)
[2020-02-09] MEDS: POLYETHYLENE GLYCOL 3350 17 GM PACK PO SCH (08:57)
[2020-02-09] MEDS: Insulin Glargine 100 units/ml 10ml Vial SUBQ SCH (20:57)
--- NOTE | 2020-02-10 01:10 | Progress Notes ---
DATE: 02/09/2020 Case was discussed with staff of the patient, reviewed records. The patient was a social studies teacher. The patient continues to be easily agitated at times. Continues to have hallucinations, responding to internal stimuli, tolerated the Risperdal with no side effects, no sedation, no nausea, no extrapyramidal symptoms. I did increase the dose yesterday 0.5 mg twice a day. The patient continues to have poor insight, easily agitated and the patient came from [facility] she can go back. I will continue outpatient group therapy, milieu therapy, adjust medication as needed. JOB# [id number] MTDReena
[2020-02-10] MEDS: INSULIN LISPRO SLIDING SCALE 100 UNITS/ML UNIT SUBQ SCH ×4 (06:53→20:44)
[2020-02-10] MEDS: POLYETHYLENE GLYCOL 3350 17 GM PACK PO SCH (08:25)
[2020-02-10] MEDS: Aspirin 81mg Chewable Tab PO SCH (08:26)
[2020-02-10] MEDS: Multivitamin Tab PO SCH (08:27)
[2020-02-10] MEDS: Acetaminophen 500 MG TAB PO PRN (14:45)
[2020-02-10] MEDS: Insulin Glargine 100 units/ml 10ml Vial SUBQ SCH (20:43)
--- NOTE | 2020-02-11 00:06 | Progress Notes ---
DATE: 02/10/2020 Case was discussed with staff of the patient, reviewed records. The patient continues to have poor insight. Continues to isolate herself. She only speaks [place] and responding to internal stimuli, but in general, she is calmer. She is less agitated. She is sleeping better, eating better. No side effects with the medication, no sedation, no nausea, no extrapyramidal symptoms. She tolerated the adding of the Risperdal to her medication. I will continue outpatient group therapy, milieu therapy, adjust medication as needed. JOB# [id number]
[2020-02-11] MEDS: INSULIN LISPRO SLIDING SCALE 100 UNITS/ML UNIT SUBQ SCH ×4 (07:03→22:02)
--- NOTE | 2020-02-11 07:39 | Progress Notes ---
DATE: 02/11/2020 SUBJECTIVE: This is a 65-year-old female, poor orientation and mostly isolative, does not really say much to me. Mood "okay," but telling staff, she is hearing voices, preoccupied, responding to internal stimuli, ongoing concerns about suicide, suicidality. Given the extent and severity of her current psychotic state, still withdrawn, depressed and anxious appearing. Medications were reviewed. Labs reviewed. Vitals were reviewed. PLAN: We will continue inpatient monitoring, ongoing and severe depressive symptoms, psychotic symptoms. Currently on dosing of Risperdal. We will continue to monitor. JOB# [id number]
[2020-02-11] MEDS: Multivitamin Tab PO SCH (08:16)
[2020-02-11] MEDS: POLYETHYLENE GLYCOL 3350 17 GM PACK PO SCH (08:16)
[2020-02-11] MEDS: Aspirin 81mg Chewable Tab PO SCH (08:17)
--- NOTE | 2020-02-11 10:46 | Internal Medicine Prog Note ---
Internal Medicine Subjective - Subjective Service Date: 02/11/20 Patient seen and examined:: without staff Patient is:: awake (no complaints) Internal Medicine Objective - Results Result Diagrams: 02/02/20 09:15 02/02/20 09:15 Recent Labs: Laboratory Last Values WBC 6.2 K/uL (4.8-10.8) 02/02/20 09:15 RBC 4.20 MIL/uL (4.2-6.2) 02/02/20 09:15 Hgb 12.1 g/dL (12.0-16.0) 02/02/20 09:15 Hct 37.5 % (36-48) 02/02/20 09:15 MCV 89 fL (79.0-98.0) 02/02/20 09:15 MCH 29 pg (27-31) 02/02/20 09:15 MCHC 32 % (32-36) 02/02/20 09:15 RDW 15.4 % (9.0-15.0) H 02/02/20 09:15 Plt Count 172 K/uL (130-430) 02/02/20 09:15 MPV 9.8 fl (7.4-10.4) 02/02/20 09:15 Neut % (Auto) 61.6 % (40-70) 02/02/20 09:15 Lymph % (Auto) 31.6 % (20.5-51.5) 02/02/20 09:15 [place] % (Auto) 4.8 % (1.7-9.3) 02/02/20 09:15 Eos % (Auto) 1.5 % (0-4) 02/02/20 09:15 Baso % (Auto) 0.5 % (0.0-2.0) 02/02/20 09:15 Neut # (Auto) 3.8 K/uL (1.8-7.7) 02/02/20 09:15 Lymph # (Auto) 2.0 K/uL (1.0-5.5) 02/02/20 09:15 [place] # (Auto) 0.3 K/uL (0.0-1.0) 02/02/20 09:15 Eos # (Auto) 0.1 K/uL (0.0-0.4) 02/02/20 09:15 Baso # (Auto) 0.0 K/uL (0.0-0.2) 02/02/20 09:15 Sodium 133 mmol/L (136-145) L 02/02/20 09:15 Potassium 4.3 mmol/L (3.5-5.1) 02/02/20 09:15 Chloride 100 mmol/L (98-107) 02/02/20 09:15 Carbon Dioxide 30 mmol/L (23-29) H 02/02/20 09:15 Anion Gap 7 (5-15) 02/02/20 09:15 BUN 30 mg/dL (8-21) H 02/02/20 09:15 Creatinine 1.25 mg/dL (0.70-1.30) 02/02/20 09:15 Glucose 308 mg/dL (70-99) H 02/02/20 09:15 POC Glucose 155 MG/DL (70 - 105) H 02/11/20 06:52 Hemoglobin A1c 11.3 % (4.8-5.6) H 02/02/20 09:15 Calcium 9.2 mg/dL (8.4-10.2) 02/02/20 09:15 Total Bilirubin 0.3 mg/dL (0.0-1.0) 02/02/20 09:15 AST 13 U/L (10-37) 02/02/20 09:15 ALT 22 U/L (12-78) 02/02/20 09:15 Alkaline Phosphatase 90 U/L (46-116) 02/02/20 09:15 Total Protein 7.5 g/dL (6.4-8.3) 02/02/20 09:15 Albumin 3.4 g/dL (3.4-5.0) 02/02/20 09:15 Triglycerides 203 mg/dL (30-150) H 02/02/20 09:15 Cholesterol 159 mg/dL (<200) 02/02/20 09:15 LDL Cholesterol 88 mg/dL (0-129) 02/02/20 09:15 HDL Cholesterol 49 mg/dL (>55) L 02/02/20 09:15 TSH 0.88 uIU/ml (0.358-3.740) 02/02/20 09:15 - Physical Exam Vitals and I&O: Vital Signs Temp 97.0 F 02/11/20 06:15 Pulse 88 02/11/20 08:16 Resp 20 02/11/20 06:15 BP 130/72 02/11/20 08:16 Pulse Ox 97 02/11/20 06:15 Intake & Output 02/10/20 02/11/20 02/11/20 18:59 06:59 18:59 Intake Total 900 84 Balance 900 84 Intake: Oral 900 84 Other: # Voids 3 1 # Bowel Movements 1 0 Active Medications: Current Medications Acetaminophen (Tylenol Extra Strength) 1,000 mg PO Q6H PRN PRN Reason: Pain (Moderate 4-6) Stop: 04/01/20 02:21 Last Admin: 02/10/20 14:45 Dose: 1,000 mg Acetaminophen (Tylenol) 650 mg PO Q4H PRN PRN Reason: Pain (Mild 1-3) Stop: 04/01/20 07:45 Last Admin: 02/09/20 18:17 Dose: 650 mg Al Hydrox/Mg Hydrox/Simethicone (Maalox) 30 ml PO Q4HR PRN PRN Reason: GI DISTRESS Stop: 04/01/20 07:45 Aripiprazole (Abilify) 30 mg PO DAILY [facility]; Protocol Stop: 04/01/20 08:59 Last Admin: 02/11/20 08:17 Dose: 30 mg Artificial Tears (Artificial Tears Ophth Soln) 1 drop EACH EYE Q6HR PRN PRN Reason: dry eyes Stop: 04/01/20 09:59 Ascorbic Acid (Vitamin C) 500 mg PO DAILY [facility] Stop: 04/01/20 08:59 Last Admin: 02/11/20 08:17 Dose: 500 mg Aspirin (Aspirin Chewable) 81 mg PO DAILY [facility] Stop: 04/01/20 08:59 Last Admin: 02/11/20 08:17 Dose: 81 mg Brimonidine Tartrate (Alphagan 0.15% Ophth Soln) 1 drop EACH EYE Q8HR [facility] Stop: 04/01/20 12:59 Last Admin: 02/11/20 05:35 Dose: 1 drop Cyanocobalamin (Vitamin B12) 1,000 mcg PO DAILY [facility] Stop: 04/01/20 08:59 Last Admin: 02/11/20 08:17 Dose: 1,000 mcg Dextrose (Glutose 40%) 18.75 gm PO PRN PRN PRN Reason: BS Below 70 if tolerate po Stop: 04/01/20 09:17 Gabapentin (Neurontin) 800 mg PO Q8HR [facility] Stop: 04/01/20 12:59 Last Admin: 02/11/20 05:36 Dose: 800 mg Glipizide (Glucotrol) 5 mg PO DAILY [facility] Stop: 04/12/20 08:59 Glucagon (Glucagen) 1 mg IM PRN PRN PRN Reason: BS Below 70 if not tolerate po Stop: 04/01/20 09:17 Ibuprofen (Motrin) 400 mg PO Q4H PRN PRN Reason: Pain (Severe 7-10) Stop: 04/01/20 02:21 Insulin Glargine (Lantus Insulin) 40 units SUBQ HS [facility] Stop: 04/11/20 20:59 Insulin Human Lispro (Humalog Insulin Sliding Scale) 0 units SUBQ ACHS [facility]; Protocol Stop: 04/01/20 09:29 Last Admin: 02/11/20 07:03 Dose: 3 units Loratadine (Claritin) 10 mg PO DAILY [facility] Stop: 04/01/20 08:59 Last Admin: 02/11/20 08:16 Dose: 10 mg Lorazepam (Ativan) 0.5 mg PO Q4HR PRN; Protocol PRN Reason: Anxiety Stop: 04/01/20 07:00 Last Admin: 02/07/20 10:28 Dose: 0.5 mg Magnesium Hydroxide (Milk Of Magnesia) 30 ml PO HS PRN PRN Reason: Constipation Stop: 04/01/20 07:45 Multivitamins/Vitamin C (Theragran) 1 tab PO DAILY [facility] Stop: 04/01/20 08:59 Last Admin: 02/11/20 08:16 Dose: 1 tab Polyethylene Glycol (Miralax) 17 gm PO DAILY [facility] Stop: 04/01/20 08:59 Last Admin: 02/11/20 08:16 Dose: 17 gm Propranolol HCl (Inderal) 10 mg PO TID [facility] Stop: 04/01/20 08:59 Last Admin: 02/11/20 08:16 Dose: 10 mg Risperidone (Risperdal) 0.5 mg PO BID [facility]; Protocol Stop: 04/08/20 09:59 Last Admin: 02/11/20 08:17 Dose: 0.5 mg Senna (Senna) 8.6 mg PO HS [facility] Stop: 04/01/20 20:59 Last Admin: 02/10/20 20:42 Dose: 8.6 mg Simvastatin (Zocor) 10 mg PO HS [facility]; Protocol Stop: 04/01/20 20:59 Last Admin: 02/10/20 20:42 Dose: 10 mg Zolpidem Tartrate (Ambien) 5 mg PO HS PRN PRN Reason: Insomnia Stop: 04/01/20 02:30 Last Admin: 02/11/20 01:54 Dose: 5 mg HEENT: NC/AT, PERRLA Neck: Supple Lungs: CTAB Cardiovascular: RRR, Normal S1, Normal S2 Abdomen: soft Extremities: clear Internal Medicine Assmt/Plan - Assessment Assessment: 1. DM 2. HTN - Plan Plan: increase lantus to 40 units q hs start glipizide 5 mg po daily d/w r.n. reivewed medical records Nutritional Asmnt/Malnutr-PDOC - Dietary Evaluation Malnutrition Findings (Please click <Entered> for more info): Nutritional Asmnt/Malnutrition Start: 02/05/20 10: 09 Text: Status: Complete Freq: Protocol: Document 02/05/20 10:09 KATY (Rec: 02/05/20 10:47 KATY LUIS- [id number]) Nutritional Asmnt/Malnutrition Patient General Information Nutritional Screening Moderate Risk Diagnosis Psychosis Pertinent Medical Hx/Surgical Hx Diabetes, hypertension Subjective Information Per H&P, patient was admitted for agitation. FNS providing patient with ~1700 kcal, 80gm protein/day; with current intake of ~90% of meals, eating ~1530kcal and 72gm protein/day, meeting 100% of goals. Current Diet Order/ Nutrition Support 60 gm CCHO, 2gm Na Patient / S.O Not Indicated Pertinent Medications maalox, vitamin C, Vitamin B12 , Glucagon, Lantus, Humalog, MOM, Theragran, Miralax, Senna Pertinent Labs (02/01) Na 133, Glucose 308, TAG 203, HGA1C 11.3 POC Glucose ranging 131-333 Nutritional Hx/Data Height 1.63 m Height (Calculated Centimeters) 162.6 Current Weight (lbs) 78.471 kg Weight (Calculated Kilograms) 78.5 Weight (Calculated Grams) 15106.5 [place] Body Weight 120 % [place] Body Weight 144 Body Mass Index (BMI) 29.7 Recent Weight Change No Weight Status Overweight GI Symptoms GI Symptoms None Last BM 02/02 x 1 Difficult in: None Food Allergies No Cultural/Ethnic/Synagogue Belief none indicated Usual diet at home unknown Skin Integrity/Comment: Sy Singh, Skin intact Current %PO Good (75-100%) Estimated Nutritional Goals BEE in Kcals: Adj wt of IBW Calories/Kcals/Kg Adj BW 60.5 25-30 kcal/kg Kcals Calculated ~0369-2286 kcal/day Protein: Adj wt of IBW Protein g/k gm/kg Protein Calculated ~60 gm/day Fluid: ml ~2333-9732 ml/day (1 ml/kcal) Nutritional Problem 1. Problem Problem Altered nutrition related lab values related to Etiology electrolyte imbalance, uncontrolled hyperglycemia aeb Signs/Symptoms: Na 133, Glucose 308, TAG 203, HGA1C 11.3 POC Glucose ranging 131-333 Intervention/Recommendation Comments 1. Continue 60 gm CCHO, 2gm Sodium diet as tolerated by patient. 2. MD to continue to modify insulin regimen as needed for optimal glycemic control. 3. MD to consider fluid restriction if patient remains hyponatremic. Expected Outcomes/Goals Expected Outcomes/Goals Oral intake >75% of meals, weight stable or trend toward IBW, nutrition related labs WNL F/U MR 02/07-
[2020-02-11] MEDS: Acetaminophen 500 MG TAB PO PRN (13:11)
[2020-02-11] MEDS: Insulin Glargine 100 units/ml 10ml Vial SUBQ SCH (22:01)
[2020-02-12] MEDS: INSULIN LISPRO SLIDING SCALE 100 UNITS/ML UNIT SUBQ SCH ×4 (06:39→21:28)
--- NOTE | 2020-02-12 06:43 | Progress Notes ---
DATE: 02/12/2020 SUBJECTIVE: This is a 65-year-old female, currently in the hospital, [facility], hallucinations, psychosis, hearing voices, anxious, depressed. Again, a 65-year-old female, the patient remains symptomatic. Slept about 7 hours on a positive note. Still with poor orientation, hears voices, voice telling her to hurt herself, making her nervous. Still endorsing a high level of psychological distress, turmoil, "yes" voices is what she tells me. She is believing people are coming up to her, touching her legs. Medications reviewed. Labs reviewed. Vitals were reviewed. ASSESSMENT: A 65-year-old female with ongoing behavioral disturbances, voices, still attesting to voices. PLAN: We will continue inpatient monitoring. I will be titrating her dosing of Risperdal today to target ongoing perceptual disturbances. JOB# [id number]
[2020-02-12] MEDS: Aspirin 81mg Chewable Tab PO SCH (08:33)
[2020-02-12] MEDS: POLYETHYLENE GLYCOL 3350 17 GM PACK PO SCH (08:33)
[2020-02-12] MEDS: Multivitamin Tab PO SCH (08:34)
[2020-02-12] MEDS: Insulin Glargine 100 units/ml 10ml Vial SUBQ SCH (21:27)
[2020-02-13] MEDS: INSULIN LISPRO SLIDING SCALE 100 UNITS/ML UNIT SUBQ SCH ×4 (06:59→22:20)
[2020-02-13] MEDS: Aspirin 81mg Chewable Tab PO SCH (09:22)
[2020-02-13] MEDS: Multivitamin Tab PO SCH (09:22)
[2020-02-13] MEDS: POLYETHYLENE GLYCOL 3350 17 GM PACK PO SCH (09:23)
--- NOTE | 2020-02-13 14:28 | Discharge Summary ---
DATE OF DISCHARGE: 02/13/2020 IDENTIFYING INFORMATION: The patient is a 65-year-old female. CHIEF COMPLAINT: The patient talked through a anodizer. HISTORY OF PRESENT ILLNESS: The patient was hearing voices, sent from [facility] [place] because of psychosis with a history of auditory hallucination, visual hallucinations, hearing voices to harm herself. The patient has been anxious, depressed. The patient was able to tell me her age. She knew where she was, she was not able to tell me the date , she knew it was 2019. If she is not sure why she was here, but she knew she is here because she was hearing voices telling her to harm herself, but she wants to cooperate, has not been sleeping well. Appetite is okay. Denies homicidal ideation. The patient has prior admissions to this facility and other facility with a history of schizophrenia. Denies prior suicide attempt. COURSE IN THE HOSPITAL: The patient was diagnosed with chronic, undifferentiated schizophrenia. The patient was started on her medication prior to admission, which is Abilify 30 mg daily,risperdal was started, I increased the dose to 0.75 mg twice a day, simvastatin was continued and sennoside, multivitamin, magnesium, loratadine, insulin, ibuprofen, gabapentin and vitamin B12, aspirin. The patient progressively got better. She was no longer hearing voices. At the beginning, she was on 1:1, but later was discontinued because she felt better. She was sleeping well, eating well. No acting out, no longer hearing voices or seeing things. She improved, we felt she could be discharged to a lesser level of care. CONDITION ON DISCHARGE: The patient was appropriately dressed and groomed. No suicidal ideation, no homicidal ideation, no paranoia. Sleeping well, eating well. The patient can take care of his basic needs and ADLs. The patient also can function well socially. She is [place] speaking. FINAL DIAGNOSIS: Chronic undifferentiated schizophrenia. MEDICAL DIAGNOSES: The patient will follow up with the psychiatrist, primary care physician and a therapist at the nursing facility. EXPECTED OUTCOME: Stable if the patient complies to above. JOB# [id number] PIERO
[2020-02-13] MEDS: Acetaminophen 500 MG TAB PO PRN (15:24)
[2020-02-13] MEDS: Insulin Glargine 100 units/ml 10ml Vial SUBQ SCH (22:20)
[2020-02-14] MEDS: INSULIN LISPRO SLIDING SCALE 100 UNITS/ML UNIT SUBQ SCH ×4 (06:43→21:24)
[2020-02-14] MEDS: Aspirin 81mg Chewable Tab PO SCH (08:57)
[2020-02-14] MEDS: POLYETHYLENE GLYCOL 3350 17 GM PACK PO SCH (08:57)
[2020-02-14] MEDS: Multivitamin Tab PO SCH (08:58)
[2020-02-14] MEDS: Acetaminophen 500 MG TAB PO PRN ×2 (09:43→17:01)
[2020-02-14] MEDS: Insulin Glargine 100 units/ml 10ml Vial SUBQ SCH (21:24)
--- NOTE | 2020-02-15 03:12 | Discharge Summary ---
DATE OF DISCHARGE: 02/14/2020 This actually is an addendum to discharge summary. The patient was supposed to have been discharged yesterday, was postponed because of COVID-19 test. The patient is stable, no acting out behavior, sleeping well and eating well. No suicidal ideation, no homicidal ideation, no paranoia, no side effects. Discharge diagnoses and plans are the same like yesterday. The patient will be discharged to a lesser level of care, and as I mentioned before, discharge diagnoses and plans like yesterday. JOB# [id number]
[2020-02-15] MEDS: INSULIN LISPRO SLIDING SCALE 100 UNITS/ML UNIT SUBQ SCH ×3 (06:33→17:02)
[2020-02-15] MEDS: POLYETHYLENE GLYCOL 3350 17 GM PACK PO SCH (08:17)
[2020-02-15] MEDS: Aspirin 81mg Chewable Tab PO SCH (08:18)
[2020-02-15] MEDS: Multivitamin Tab PO SCH (08:18)
--- NOTE | 2020-02-15 20:23 | Progress Notes ---
DATE: 02/15/2020 Case was discussed with staff of the patient, reviewed records. The patient apparently was not discharged yesterday, so hopefully she will be discharged today. The patient is sleeping well, eating well. No side effects with the medication, no sedation, no nausea, no extrapyramidal symptoms. She will be going to [facility]. Discharge plans and diagnoses are the same as they were dictated on the discharge summary and the patient will follow up with the psychiatrist, primary care physician and therapist. JOB# [id number]
== END 2020-02-15 17:00 | DRG 885 ==
LOC: GERO 02-01 01:10
PROVIDERS: ADMIT Psychiatry & Neurology Psychiatry; ATTEND Psychiatry & Neurology Psychiatry
DX: F20.89 Other schizophrenia (principal); E11.65 Type 2 diabetes mellitus with hyperglycemia; E87.1 Hypo-osmolality and hyponatremia; I10 Essential (primary) hypertension; E78.5 Hyperlipidemia, unspecified; Z20.828 Contact with and (suspected) exposure to other viral communicable diseases; Z87.891 Personal history of nicotine dependence
CPT/HCPCS: 36415-UA; 80053-TC; 80061-TC; 82948-90; 83036-90; 84443-TC; 85025-TC; 90899; G0410; J1815; Z7610